=== PATIENT | female | born 1980 | race Caucasian/White ===

== ENCOUNTER 2016-08-11 09:01 | Emergency (ER) | payer MEDICAID ==
[~2016-08-11] VITALS: Ht 154.9 cm; Wt 55.0 kg
[2016-08-11 09:10] VITALS: BP 119/85
[2016-08-11] MEDS ORDERED: KETOROLAC 30MG/ML VIAL IV ONE (09:30)
[2016-08-11] MEDS ORDERED: KETOROLAC 30MG/ML VIAL IM ONE (09:45)
== END 2016-08-11 10:58 | disposition home or self-care (01) ==
LOC: ER 09:37
DX: S16.1XXA Strain of muscle, fascia and tendon at neck level, initial encounter (principal); S46.912A Strain of unspecified muscle, fascia and tendon at shoulder and upper arm level, left arm, initial encounter; M54.5 Low back pain; M54.2 Cervicalgia; Z98.890 Other specified postprocedural states; V89.2XXA Person injured in unspecified motor-vehicle accident, traffic, initial encounter; Y93.89 Activity, other specified; Y92.488 Other paved roadways as the place of occurrence of the external cause; Y99.8 Other external cause status
CPT/HCPCS: 73030; 81025; 96372; 99284; J1885